=== PATIENT | male | born 1940 | race Caucasian/White ===

== ENCOUNTER → 2016-03-26 | Outpatient (CLI) | payer OTHER ==
[~2016-03-26] MED LIST: ACETAMINOPHEN325 M1 PO; ADALAT CC90 MG PO; ASPIRIN325 PO; ATORVASTATIN CA40 MG PO; BACTRIM DS TAB1 EACH PO; BYSTOLIC 5 MG5 M1 PO; CLOPIDOGREL75 MG PO; DIOVAN HCT 80-1 EACH PO; LOSARTAN-HCTZ1 EAC2; LOSARTAN-HCTZ1 EAC2 PO; METFORMIN HCL500 MG PO; METOPROLOL SUCC25 M1 PO; MOTION RELIEF25 MG PO; PRAVACHOL40 MG PO; TRIBENZOR 40-11 EAC1 PO; VALIUM2 MG PO
--- NOTE | ~2016-03-26 | P ---
[facility] [place] [address] PROCEDURE REPORT Name: ELLIOT FRANCOIS Room #: REG [facility].#: [id number] Admission: 03/26/16 Attend Phys: Tommy Osei Discharge: Date of : 40 Report #: [id number] THIS REPORT FOR: //name// CC: Tommy Rivas DATE OF SERVICE: 03/26/2016 DATE OF SERVICE: 03/26/2016 PROCEDURE PERFORMED: Colonoscopy with polypectomy. HISTORY OF PRESENT ILLNESS: The patient is a 75-year-old male, who presents today for routine screening colonoscopy. No previous history of colonoscopy. He denies any symptoms. No family history of colon cancer. DESCRIPTION OF PROCEDURE: The risks and benefits of the procedure were explained to the patient, those risks including but not limited to bleeding, perforation, the risk of sedation. He understood these risks and gave informed consent. Sedation was given using propofol per anesthesia. Next, a digital rectal exam was initially performed, which was normal. Next, using a standard Fujinon colonoscope, the scope was placed in the patient's anus and advanced under direct vision to the cecum. The overall prep was excellent. The cecum and ileocecal valve were normal in appearance. ____ diverticulosis was noted scattered throughout the entire colon from the ascending, transverse, descending and to the sigmoid colon, most of which were in the sigmoid colon. No evidence of inflammation. In the distal sigmoid colon, a 6 mm sessile polyp was noted. This was removed by snare. There was a slight amount of bleeding after removal and therefore a single Endoclip was placed. No further bleeding was noted. Rectal mucosa was normal. On retroflexion, small nonbleeding internal hemorrhoids were noted, otherwise normal colonoscopy. The scope was then withdrawn and the procedure terminated. The patient tolerated the procedure well. IMPRESSION: 1. Pandiverticulosis. 2. Sigmoid colon polyp. 3. Internal hemorrhoids. 4. Otherwise, normal colonoscopy. RECOMMENDATIONS: 1. Await biopsy results. 2. Repeat colonoscopy in [address] [address] PROCEDURE REPORT Name: ELLIOT FRANCOIS Room #: REG [facility] Ho#: [id number] Admission: 03/26/16 Attend Phys: Tommy Osei Discharge: Date of : 40 Report #: [id number] Thank you for allowing me to participate in his care. <ELECTRONICALLY SIGNED> By: Tommy Briceño MD 03/28/16 1358 1020 1047 Tommy Briceño MD /nt
--- NOTE | ~2016-03-26 | S ---
[facility] [place] [address] SURGICAL PATH RPT PROCEDURE Name: ELLIOT FRANCOIS Room #: REG [facility] M..#: [id number] Admission: 03/26/16 Date of : 40 Discharge: Report #: [id number] Path Case #: [id number] PATHOLOGY REPORT COLLECTION DATE: 03/26/2016 RECEIVED DATE: 03/27/2016 SUBMITTING PHYS: Dr. Tommy Briceño OTHER PHYS: Dr. Robert Rivas SPECIMEN(S) RECEIVED: A.Sigmoid colon polyp * * * * * * * * * * * * FINAL DIAGNOSIS: Colonic mucosa "sigmoid colon polyp biopsy": - Tubular adenoma. - There is no evidence of high grade dysplasia or malignancy. (SHA:[facility]; d/t: 03/28/2016) PATHOLOGIST: Uri Cardona M.D. REPORT ELECTRONICALLY SIGNED BY: Uri Cardona M.D. DATE/TIME: 03/28/2016 10:54 * * * * * * * * * * * * GROSS PATHOLOGY: Received in formalin labeled "Elliot Francois and sigmoid colon polyp," is a segment of regan soft tissue measuring 0.4 cm in maximum dimension. The specimen is submitted entirely in cassette A1. (TTL; 03/27/2016) CLINICAL HISTORY: Screening INITIAL CPT CODE(S): A; 49887 Professional services performed by [facility] at [facility] [address], [place] [address] Technical services performed by [facility] at [address] [place] [address]., [address], [place] [address]. [facility] [address] [place] [address] SURGICAL PATH RPT PROCEDURE Name: ELLIOT FRANCOIS Room #: REG [facility] Ho#: [id number] Admission: 03/26/16 Date of : 40 Discharge: Report #: [id number] Path Case #: [id number] [address] PHONE: [phone] DIRECTOR: Sid Reese M.D. * * * END OF REPORT * * *
== END | disposition home or self-care (01) ==
LOC: GI 08:37
DX: Z12.11 Encounter for screening for malignant neoplasm of colon (principal); K63.5 Polyp of colon; K64.8 Other hemorrhoids; K57.30 Diverticulosis of large intestine without perforation or abscess without bleeding
CPT/HCPCS: 62110; 62900

== ENCOUNTER → 2016-12-23 | Outpatient (CLI) | payer OTHER ==
--- NOTE | ~2016-12-23 | EXE ---
[facility] [place] [address] STRESS ECHOCARDIOGRAM Name: ELLIOT FRANCOIS Room #: REG [facility] Ho#: [id number] Admission: 12/23/16 Attend Phys: Tyson Rae, Discharge: Date of : 40 Date of Service: 12/23/16 1523 Report #: [id number] THIS REPORT FOR: //name// APPROVED REPORT Exam: Stress Echocardiogram Indication: CAD , Hyperlipidemia, Hypertension Patient Location: Out-Patient Stress Nurse: Brandy Sood RN Room #: Echo lab Status: routine Ht: 5 ft 11 in HR: 59 bpm BP: 162/90 mmHg Medical History Medical History: CAD s/p stent, Diabetes, HTN, Hyperlipidemia Cardiac Risk Factors: HTN, Hyperlipidemia, DM, Smoking Previous Cardiac Procedures: PCI Exercise History: Physically active Procedure The patient underwent an Exercise Stress Test using the Tin Protocol. Blood pressure, heart rate, and EKG were monitored. An Echocardiogram was performed by multi care technician in four stages in quad fashion. At peak stress, four selected images were obtained and placed side by side with resting images for comparison. Stress Test Details Stress Test: Exercise stress testing was performed using a Tin protocol. HR Resting HR: 59 bpm Max Heart Rate (APMHR): 144 bpm Max HR Achieved: 122 bpm Target HR (85% APMHR): 122 bpm % of APMHR: 84 Recovery HR: 75 bpm HR response to stress: Normal HR response to stress BP Resting BP: 162/90 mmHg Max BP: 164/76 mmHg Recovery BP: 146/80 mmHg ECG [facility] [address] [place] [address] STRESS ECHOCARDIOGRAM Name: ELLIOT FRANCOIS Room #: [facility] [place]#: [id number] Admission: 12/23/16 Attend Phys: Tyson Rae, Discharge: Date of : 40 Date of Service: 12/23/16 1523 Report #: [id number] Clinical Reason for Termination: Maximal effort Exercise duration: 7 min 7 sec Highest Stage Achieved: Stage 3: 3.4 mph at 14% grade. Exercise capacity: 10 METs Overall Exercise Capacity for Age: Normal Pre-Stress Echo The resting Echocardiogram showed normal left ventricular contractility with an estimated Ejection Fraction of about 55-60%. Post-Stress Echo The stress Echocardiogram showed normal left ventricular contractility with an estimated Ejection Fraction of about 65-70%. Clinical Normal augmentation of myocardial wall segments using a 17 segment model. Conclusion Clinical Response: Non-ischemic Exercise Capacity: Average Stress ECG Response: Non-ischemic Stress Echo Images: Non-ischemic Other Information Study Quality: Good <ELECTRONICALLY SIGNED> By: Tyson Rae MD, FACC 12/23/16 1523 1523 1523 Tyson Rae MD, FACC /INF
== END ==
LOC: CV 06:31
DX: I25.10 Atherosclerotic heart disease of native coronary artery without angina pectoris (principal); I10 Essential (primary) hypertension; R07.89 Other chest pain; R06.02 Shortness of breath

== ENCOUNTER → 2017-04-20 | Outpatient (CLI) | payer OTHER | LOC: RAD 08:37 | DX: R05 Cough (principal); R50.9 Fever, unspecified ==

== ENCOUNTER → 2017-04-27 | Outpatient (CLI) | payer OTHER | LOC: RAD 12:33 | DX: J84.89 Other specified interstitial pulmonary diseases (principal) ==

== ENCOUNTER → 2019-05-26 | Outpatient (CLI) | payer OTHER | LOC: SJCVC 15:23 | DX: R94.31 Abnormal electrocardiogram [ECG] [EKG] (principal); I25.10 Atherosclerotic heart disease of native coronary artery without angina pectoris; I10 Essential (primary) hypertension; E78.00 Pure hypercholesterolemia, unspecified; E11.9 Type 2 diabetes mellitus without complications; J44.9 Chronic obstructive pulmonary disease, unspecified; F17.210 Nicotine dependence, cigarettes, uncomplicated; Z95.5 Presence of coronary angioplasty implant and graft; Z79.4 Long term (current) use of insulin; Z79.899 Other long term (current) drug therapy ==

== ENCOUNTER → 2019-07-14 | Outpatient (CLI) | payer OTHER | LOC: SJCVCIMAG 11:21 | DX: I25.10 Atherosclerotic heart disease of native coronary artery without angina pectoris (principal); I10 Essential (primary) hypertension; E78.5 Hyperlipidemia, unspecified; Z95.1 Presence of aortocoronary bypass graft; Z87.891 Personal history of nicotine dependence ==

== ENCOUNTER → 2020-01-26 | Outpatient (CLI) | payer OTHER | LOC: SJCVC 14:10 | PROVIDERS: ATTEND Internal Medicine Cardiovascular Disease | DX: R94.31 Abnormal electrocardiogram [ECG] [EKG] (principal); I49.9 Cardiac arrhythmia, unspecified; I25.10 Atherosclerotic heart disease of native coronary artery without angina pectoris; I10 Essential (primary) hypertension; E78.00 Pure hypercholesterolemia, unspecified; E11.9 Type 2 diabetes mellitus without complications; F17.210 Nicotine dependence, cigarettes, uncomplicated; Z95.5 Presence of coronary angioplasty implant and graft; Z79.82 Long term (current) use of aspirin; Z79.899 Other long term (current) drug therapy ==

== ENCOUNTER → 2020-08-30 | Outpatient (CLI) | payer OTHER | LOC: SJCVC 10:46 | PROVIDERS: ATTEND Internal Medicine Cardiovascular Disease | DX: R94.31 Abnormal electrocardiogram [ECG] [EKG] (principal); I25.10 Atherosclerotic heart disease of native coronary artery without angina pectoris; I10 Essential (primary) hypertension; E78.00 Pure hypercholesterolemia, unspecified; E11.9 Type 2 diabetes mellitus without complications; J44.9 Chronic obstructive pulmonary disease, unspecified; F17.210 Nicotine dependence, cigarettes, uncomplicated; Z79.82 Long term (current) use of aspirin; Z79.899 Other long term (current) drug therapy; Z72.89 Other problems related to lifestyle ==

== ENCOUNTER → 2021-05-02 | Outpatient (CLI) | payer OTHER | LOC: SJCVC 10:13 | PROVIDERS: ATTEND Internal Medicine Cardiovascular Disease | DX: R94.31 Abnormal electrocardiogram [ECG] [EKG] (principal); I25.10 Atherosclerotic heart disease of native coronary artery without angina pectoris; I10 Essential (primary) hypertension; E78.00 Pure hypercholesterolemia, unspecified; R06.00 Dyspnea, unspecified; J44.9 Chronic obstructive pulmonary disease, unspecified; F17.210 Nicotine dependence, cigarettes, uncomplicated; E11.9 Type 2 diabetes mellitus without complications; Z72.89 Other problems related to lifestyle; Z79.82 Long term (current) use of aspirin; Z79.84 Long term (current) use of oral hypoglycemic drugs; Z79.899 Other long term (current) drug therapy; Z86.16 Personal history of COVID-19 ==